=== PATIENT | male | born 1945 | race Caucasian/White ===

== ENCOUNTER 2017-01-20 12:54 | Day surgery (SDC) | payer MEDICARE, OTHER ==
--- NOTE | 2017-01-20 12:18 | HP ---
DATE OF CLINIC: 01/15/17 CHANEL LARSEN JR. : 1945 PLANNED PROCEDURE: Left Achilles Tendon Repair DATE OF SURGERY: January 20, 2017 SURGEON: Dexter Guerrier M.D. PCP: Dr. Alona De La Vega HISTORY OF PRESENT ILLNESS Chanel Larsen Jr. is a 71 year old male. * Medication list reviewed with patient allergy list reviewed with patient. 71-year-old male who presents for evaluation of left posterior ankle and calf injury. He was pushing his Volkswagen Beetle in the driveway. This was on 01/06/17. He felt a pop and significant discomfort in the posterior ankle. The pain subsided, but he felt a persistent sensation of weakness and discomfort when attempting to push-off. He developed a fair amount of swelling and ecchymosis. His [id number] is the physical therapist, Ana Maria Larsen. He saw her and reportedly she had concerns of a calf or Achilles injury and he was sent to me for additional evaluation and discussion of management options. He denies any prior significant foot or ankle problems. No recent illnesses. No other injuries. He has been in a fracture boot which has improved his overall function. He does have a history of kidney stones for which he takes Allopurinol and hydrochlorothiazide. He also has a history several years ago of prostate cancer from which he did well and hypercholesterolemia. He is not a smoker. CURRENT MEDICATION * Allopurinol 300 MG Tablet 1 once a day 0 days, 0 refills * Aspir-81 81 MG Tablet Delayed Release 1 once a day 0 days, 0 refills * HydroCHLOROthiazide 25 MG Tablet 1 once a day 0 days, 0 refills * Simvastatin 20 MG Tablet 1 once a day 0 days, 0 refills PAST MEDICAL/SURGICAL HISTORY Reported: Medical: A history of cancer prostate and renal history stones. Surgical / Procedural: Appendectomy childhood, Prostate Surgery prostatectomy 2012 ?, and Tonsilectomy childhood. SOCIAL HISTORY Behavioral: Not a current smoker and not chewing tobacco. Smoking status: Never smoker. Alcohol: Alcohol 1-3 happy hour. Drug Use: Not using drugs. 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 ALLERGIES * Sulfa Drugs Reaction: Skin Rashes/Hives No reaction to anesthetics. FAMILY HISTORY 2 children living Family medical history Mother- High blood pressure Father-Heart disease, High blood pressure PHYSICAL FINDINGS * Vitals taken 01/15/2017 10:26 am BP-Sitting L 134/83 mmHg 100 - 120/60 - 80 BP Cuff Size Regular Pulse Rate-Sitting 75 bpm 50 - 100 Temp-Oral 96.9 F 96 - 101 Height 66 in 64 - 74 Weight 159 lbs 12.8 oz 121 - 205 Body Mass Index 25.8 kg/m2 Body Surface Area 1.82 m2 Pain Level 2 Ears, Nose, Throat: * ENT: normal. Lungs: * Clear to auscultation. Cardiovascular: Heart Rate And Rhythm: * Normal. Abdomen: * Normal. Neurological: Motor: * Dominant Hand = Right Hand. Marker: LP2 Patient is a well-developed, well-nourished male in no acute distress, normal-appearing mood and affect. Evaluation of the left leg shows skin integrity to be well preserved, no wounds, rashes or lesions. He has significant ecchymosis about the posterior ankle extending down into the hindfoot and foot. He has a positive Jaimes squeeze test compared to a normal contralateral side. He is unable to do a toe raise. He does have a palpable defect in the mid-Achilles approximately 2-3cm proximal to the insertion. Calf itself shows mild tenderness distally, but otherwise atraumatic. NT to palpation about the remainder of the ankle and hindfoot. Distal neurovascular exam is intact and symmetric with palpable pulses. Exam of the knee is normal. TESTS * Test: CBC WITH DIFF Report Date: 01/15/2017 WBC 7.5 10*3/mL BASOPHIL 0.4 % RBC 4.74 10*6/uL NEUTROPHILS 68.6 % MCH 30.8 pg MCHC 34.6 g/dL RDW 13.2 % MCV 89.0 fL PLATELET COUNT 203 10*3/mL IMM NEUT % 0.7 % IMM NEUT # 0.1 10*3/mL MONOCYTES 8.8 % EOSINOPHIL 1.7 % HCT 42.2 % HGB 14.6 g/L LYMPHOCYTE 19.8 % ANC 5.1 10*3/mL * Test: COMPREHENSIVE METABOLIC PANEL Report Date: 01/15/2017 ALT/SGPT 12 U/L ALBUMIN 4.2 g/dL ALB/GLOB RATIO 1.8 BUN 22 mg/dL BUN/CREAT RATIO 24 High CALCIUM 9.8 mg/dL GLUCOSE 101 mg/dL High CREATININE 0.9 mg/dL SODIUM 141 meq/L POTASSIUM 3.5 meq/L Low CHLORIDE 100 meq/L CARBON DIOXIDE 34 meq/L High ANION GAP 11 meq/L TOT PROTEIN 6.6 g/dL GLOBULIN 2.4 g/dL BILI,TOTAL 0.8 mg/dL AST/SGOT 17 U/L ALK PHOSPHATASE 44 U/L GFR 83 High IMAGING: Xrays obtained today, 3 views of the ankle, show mild prominence of the calcaneus at the posterior aspect of the posterior facet of the subtalar joint, but otherwise no significant bony abnormalities. ASSESSMENT Achilles tendon tear, left. THERAPY * Patient fall risk screen negative. * Patient eligible for fall risk assessment. Patient received fall risk assessment. PLAN * Pain in left ankle and joints of left foot Radiology/X-ray: Ankle Left X-ray Complete [id number] * Primary repair of ruptured Achilles tendon -left I talked to the patient and his at length with respect to my thoughts and findings. His history and exam are quite classic and I do not feel that any additional diagnostic imaging is necessary. The pros and cons of nonoperative vs. operative measures were reviewed, specifically long leg cast vs. surgical repair. After discussion he would like to proceed with operative repair. This should be done expeditiously as it has already been 9 days since his injury. With that in mind, the general physical exam was updated. His cardiac, pulmonary and abdominal exam are normal. Limitations, expectations as well as risks and possible complications were discussed in detail including, but not limited to wound problems or infection, neurovascular injury, continued pain or dysfunction including the possibility of re-rupture or weakness despite surgery. We also specifically reviewed the eventual significant problems if there are wound healing issues. We also discussed perioperative risks including risks associated with anesthesia. We reviewed postop immobilization and nonweightbearing initially in an equinus splint and then an Achilles walker starting weightbearing between 4-6 weeks depending on findings at time of surgery. Overall total healing will take several months and include PT. After informed consent he was sent from my office for completion of his preop workup. 30 minutes spent in [id number] consultation with the patient today of which greater than 50% spent in counseling. CARE TEAM Carrie De La Vega MD [facility]
[2017-01-20] MEDS ORDERED: LACTATED RINGERS 1,000 ML ONE (13:07)
[2017-01-20] MEDS ORDERED: IV START KIT ONE (13:07)
[2017-01-20] MEDS ORDERED: CEFAZOLIN SODIUM 2 GRAM PREMIX 100 ML IV ONE (13:08)
[2017-01-20] MEDS ORDERED: CEFAZOLIN SODIUM 2 GRAM PREMIX 100 ML IV PRN (13:15)
[2017-01-20] MEDS ORDERED: MIDAZOLAM HCL 1 MG/ML 2ML VIAL ONE (13:51)
[2017-01-20] MEDS ORDERED: FENTANYL 100 MCG/2 ML VIAL ONE ×2 (13:51→16:48)
[2017-01-20] MEDS ORDERED: LIDOCAINE 2% (PRES FREE) 5 ML VIAL ONE (13:54)
[2017-01-20] MEDS ORDERED: ROPIVACAINE 0.5% 30 ML VIAL ONE (13:54)
[2017-01-20] MEDS ORDERED: PROPOFOL 40 ML IV ONE (15:31)
[2017-01-20] MEDS ORDERED: KETAMINE HCL UD SYRINGE 100 MG/2 ML IV ONE (15:40)
[2017-01-20] MEDS ORDERED: PROPOFOL 20 ML IV ONE ×2 (15:45→16:24)
[2017-01-20] MEDS ORDERED: ONDANSETRON 4 MG/2ML 2 ML VIAL IV PRN (15:53)
[2017-01-20] MEDS ORDERED: PROMETHAZINE HCL 25 MG/ML VIAL IM PRN (15:53)
[2017-01-20] MEDS ORDERED: HYDROMORPHONE HCL 1 MG/ML SYRINGE IV PRN ×2 (15:53→17:01)
[2017-01-20] MEDS ORDERED: NALOXONE HCL 0.4 MG/ML VIAL IV PRN (15:53)
[2017-01-20] MEDS ORDERED: FENTANYL 100 MCG/2 ML VIAL IV PRN (15:53)
[2017-01-20] MEDS ORDERED: ATROPINE SULFATE 0.4 MG/1 ML VIAL IV PRN (15:53)
[2017-01-20] MEDS ORDERED: LACTATED RINGERS 1,000 ML IV SCH (16:00)
--- NOTE | 2017-01-20 16:56 | PCMBPN ---
Brief Post Op Note: Date of Procedure: 01/20/17 Preoperative Diagnosis: left schilles tendon tear Postoperative Diagnosis: 1. [Same] Procedure: left achilles tendon repair Surgeon: Dexter Guerrier MD Assist:Mandie (MARKEL) Anesthesia: regional block/MAC (Nicolas) Findings: proximal tear just distal to MT junction Condition: stable to PAR Complications: none IV Fluids: per anesthesia Urine Output: no lloyd Estimated Blood Loss: nil Tourniquet Time: 32 minutes Specimens: [N/A] Implants: none Drains: [N/A]
[2017-01-20] MEDS ORDERED: KETOROLAC TROMETHAMINE 30 MG/ML 1 ML VIAL IV PRN (17:01)
[2017-01-20] MEDS ORDERED: ACETAMINOPHEN 325 MG TABLET PO PRN (17:01)
[2017-01-20] MEDS ORDERED: SODIUM CHLORIDE 0.9% 1,000 ML IV SCH (17:01)
[2017-01-20] MEDS ORDERED: HYDROCODONE/ACETAMINOPHEN 5/325MG TABLET PO PRN (17:01)
[2017-01-20] MEDS ORDERED: HYDROCODONE/ACETAMINOPHEN 5/325MG TABLET ONE (17:21)
--- NOTE | 2017-01-21 14:56 | OP ---
KORI LARSEN JR. [id number] : 1945 DATE OF SURGERY: January 20, 2017 PREOPERATIVE DIAGNOSIS: Left Achilles tendon tear POSTOPERATIVE DIAGNOSIS: Left Achilles tendon tear PROCEDURE: Left Achilles Tendon Repair SURGEON: Dexter Guerrier M.D. BUSINESS REPORTING DEVELOPER: Mandie JAMES) ESTIMATED BLOOD LOSS: Minimal ANESTHESIA: Regional block plus monitored anesthesia care per Bridger TOURNIQUET TIME: Less than 40 minutes FLUIDS: IV fluid placed per anesthesia. DRAINS: None COMPLICATIONS: None INDICATIONS: Patient is a 71-year-old male who is approximately 2 weeks post a left Achilles tendon tear confirmed by physical exam in my office last week when he presented. After discussion he decided to proceed with elective repair. PAR conference was held, questions and concerns addressed and informed consent obtained. For additional details please refer to dictated preoperative H&P. PROCEDURAL DESCRIPTION: Patient was taken to the OR after placement of a popliteal block. He was placed supine on the OR table, sedated and monitored with anesthesia throughout. He was then rolled into the prone position carefully, after applying a well-padded tourniquet to the proximal thigh. Bony prominences were well-padded. The lower extremity was then prepped and draped out in the usual sterile fashion. Preoperative IV antibiotics were given empirically. After sterile prep and drape the leg was elevated and the tourniquet inflated until closure. A longitudinal incision was made posterolaterally centered over the palpable defect. Under anesthesia we did confirm that he had a positive Jaimes's calf squeeze test. I dissected through subcutaneous tissue using cautery at this point and throughout the duration of the case to establish and maintain hemostasis. There was obvious hemorrhagic Achilles tendon sheath. I developed a full thickness skin flap exposing this and then opened it under direct visualization longitudinally both proximally and distally. We evacuated the hematoma. We clearly delineated the ends of the complete tear. This was in a somewhat unusual position as expected, fairly proximal in the tendon and close to the musculotendinous junction. The tendon ends were cleaned sharply of debris and trimmed. We then used two #2 FiberWire sutures placed with a modified tendon whipstitch, one proximally and one distally. Holding the foot plantar flexed we then tied this over-sewing it with a couple of additional stitches to increase the volume apposition. Once we had done this we checked the repair. I was able to come up to neutral dorsiflexion without undue tension or evidence of failure. Satisfied, we copiously irrigated. I then closed the tendon sheath with a combination of running and interrupted 2-0 Vicryl. Once this had been done I injected the sheath with approximately 5cc of PRP, which had been obtained and prepared in the standard fashion. We then irrigated and closed the subcutaneous tissue with interrupted 3-0 Vicryl and the skin with interrupted 4-0 nylon. Prior to closure the tourniquet was released to assure that adequate hemostasis was obtained. We then applied a sterile dressing and a well-padded posterior splint in moderate equinus. The patient was then returned to the supine position, transferred to his hospital bed and sent to post anesthesia recovery in stable condition. He tolerated the procedure well. Sponge, instrument and needle counts were correct. MIGUEL/mrw CC: [place] De La Vega MD
== END 2017-01-20 18:11 | disposition home or self-care (01) ==
LOC: SDC 12:54
PROVIDERS: ATTEND Orthopaedic Surgery
DX: S86.092A Other specified injury of left Achilles tendon, initial encounter (principal); Z87.442 Personal history of urinary calculi; Z85.46 Personal history of malignant neoplasm of prostate; Z79.82 Long term (current) use of aspirin
CPT/HCPCS: 27650; J3010 ×2; J2795; J2250; J7120; A9270; J0690